=== PATIENT | female | born 1970 | race Asian ===

== ENCOUNTER 2017-08-04 15:52 | Observation (INO) | payer OTHER ==
[~2017-08-04] VITALS: Ht 160 cm; Wt 76.5 kg
[2017-08-04 17:18] LABS: HEMATOCRIT 31.5 % (36.0-46.0); HEMOGLOBIN 9.2 G/DL (11.9-15.5); MCH 19.9 PG (29.0-34.0); MCHC 29.2 G/DL (30.0-36.0); MCV 68.2 FL (83-99); PLATELET COUNT 364 K/uL (156-360); RBC DIS.WIDTH-SD 43.5 % (39-53); RED BLOOD COUNT 4.62 M/uL (3.80-5.20); WHITE BLOOD COUNT 9.1 K/uL (4.1-10.2)
[2017-08-04 17:23] LABS: CHLORIDE 110 mEq/L (99-109); POTASSIUM 4.3 mEq/L (3.7-5.4); SODIUM 137 mEq/L (136-147)
[2017-08-04 17:25] LABS: GLUCOSE 92 mg/dL (70-99)
[2017-08-04 17:28] LABS: CREATININE 0.7 mg/dL (0.6-1.3); GFR ESTIMATE (CALCULATED) > 59 mL/min/
[2017-08-04 17:29] LABS: UREA NITROGEN (BUN) 13 mg/dL (9-23)
[2017-08-04 17:37] LABS: TROP-I INTERPRETATION NEGATIVE; TROPONIN-I < 0.01 ng/mL (0.0-0.30)
[2017-08-04] MEDS ORDERED: GABAPENTIN100 MG PO (18:01)
[2017-08-04] MEDS ORDERED: ADVIL MIGRAINE200 MG PO (18:54)
[2017-08-04] MEDS ORDERED: OMEPRAZOLE20 MG PO (18:55)
[2017-08-04] MEDS ORDERED: DAILY VALUE1 EACH PO (18:56)
[2017-08-04 21:15] VITALS: BP 161/78
[2017-08-04 23:59] LABS: D-DIMER ELISA < 150.00 ng/mLDDU (<230)
[2017-08-05 00:13] LABS: IRON 17 MCG/DL (35-150); TRANSFERRIN (TIBC) 341.9 mg/dL (215-380); TRANSFERRIN SATUR. 5 % (20-55)
[2017-08-05 00:14] LABS: TROP-I INTERPRETATION NEGATIVE; TROPONIN-I < 0.01 ng/mL (0.0-0.30)
[2017-08-05 04:31] VITALS: BP 119/67
[2017-08-05 05:48] LABS: TROP-I INTERPRETATION NEGATIVE; TROPONIN-I < 0.01 ng/mL (0.0-0.30)
[2017-08-05 07:48] VITALS: BP 113/62
[2017-08-05 08:28] LABS: FERRITIN 2 NG/ML (10-291)
[2017-08-05 11:47] VITALS: BP 129/77
[2017-08-05 15:32] VITALS: BP 133/84
[2017-08-05] MEDS ORDERED: COLACE100 MG PO (16:27)
[2017-08-05] MEDS ORDERED: IRON325 M1 PO (16:28)
== END 2017-08-05 18:46 | disposition home or self-care (01) ==
LOC: EME 15:52 → EDOF 20:00 → ENRESERV 20:03 → 5WEST 21:06
PROVIDERS: Physician Assistant
DX: R07.89 Other chest pain (principal); D50.9 Iron deficiency anemia, unspecified; G44.209 Tension-type headache, unspecified, not intractable; N92.0 Excessive and frequent menstruation with regular cycle; K21.9 Gastro-esophageal reflux disease without esophagitis; Z79.82 Long term (current) use of aspirin
CPT/HCPCS: 70450; 71046; 80048; 82728; 83540; 84466; 84484; 85027; 85379; 93005; G0378; J1885; J2405